=== PATIENT | male | born 1960 | race Caucasian/White ===

== ENCOUNTER 2018-12-03 23:34 | Emergency (ER) | payer OTHER | END 2018-12-04 00:47 | disposition other institution (70) | LOC: ED 23:34 | DX: Z02.89 Encounter for other administrative examinations (principal) ==

== ENCOUNTER 2018-12-03 23:34 | Emergency (ER) | payer OTHER ==
[~2018-12-03] VITALS: Ht 172.7 cm; Wt 68.0 kg
[2018-12-04 00:47] VITALS: BP 148/107
== END 2018-12-04 00:47 | disposition other institution (70) ==
LOC: ED 23:34
DX: S01.21XA Laceration without foreign body of nose, initial encounter (principal); X58.XXXA Exposure to other specified factors, initial encounter; Y93.89 Activity, other specified; Y92.89 Other specified places as the place of occurrence of the external cause; Y99.8 Other external cause status
CPT/HCPCS: 90715; J2001